=== PATIENT | female | born 1930 | race African-American/Black ===

== ENCOUNTER 2017-08-24 10:38 | Emergency (ER) | payer MEDICARE, OTHER ==
[~2017-08-24] VITALS: Ht 162.6 cm; Wt 78.0 kg
[~2017-08-24 10:38] MED LIST: ASPI-1159 PO; CHOL400T15 PO; CYAN10009 PO; LAMO25TA4 PO; LEVE500T19 PO; METO-385 PO; MULT-348 PO
[2017-08-24 12:11] LABS: BASOPHILS % 0.6 % (0.0-2.0); EOSINOPHILS % 2.6 % (0.0-5.0); HEMATOCRIT. 34.8 % (36.0-48.0); HEMOGLOBIN. 11.3 g/dL (12.0-16.0); LYMPHOCYTES % 27.2 % (20.0-50.0); MEAN CORPUSCULAR HEMOGLOBIN 29.5 pg (28.0-32.0); MEAN CORPUSCULAR VOLUME 90.8 fL (81.0-99.0); MEAN PLATELET VOLUME 6.1 fl (7.4-10.4); MONOCYTES % 9.2 % (2.0-8.0); NEUTROPHILS % 60.4 % (40.0-76.0); PLATELET 207 x1000/uL (130-400); RED BLOOD CELL COUNT 3.83 mill/uL (4.2-5.4); RED CELL DISTRIBUTION WIDTH 14.3 % (11.6-14.6)
[2017-08-24] MEDS ORDERED: NAPROXEN 500MG TABLET PO ONE (12:15)
[2017-08-24 12:17] LABS: CHLORIDE 106 mEq/L (98-107)
[2017-08-24 12:25] LABS: INR 1.1; PARTIAL THROMBOPLASTIN TIME 26.4 sec (23.4-31.0); PROTHROMBIN TIME 11.1 sec (9.4-11.6)
[2017-08-24 13:41] VITALS: BP 167/80
== END 2017-08-24 14:04 | disposition home or self-care (01) ==
LOC: ER 12:27
DX: R58 Hemorrhage, not elsewhere classified (principal); M79.622 Pain in left upper arm; Z79.82 Long term (current) use of aspirin; I10 Essential (primary) hypertension
CPT/HCPCS: 36415; 71045; 73060; 80048; 85025; 85610; 85730; 86850; 86900; 93005; 93971; 99285

== ENCOUNTER 2018-04-28 15:35 | Emergency (ER) | payer MEDICARE, OTHER ==
[~2018-04-28] VITALS: Ht 167.6 cm; Wt 78.0 kg
[2018-04-28 17:07] LABS: BASOPHILS % 0.1 % (0.0-2.0); HEMATOCRIT. 34.9 % (36.0-48.0); HEMOGLOBIN. 11.6 g/dL (12.0-16.0); LYMPHOCYTES % 7.2 % (20.0-50.0); MEAN CORPUSCULAR HEMOGLOBIN 30.3 pg (28.0-32.0); MEAN CORPUSCULAR VOLUME 91.3 fL (81.0-99.0); MEAN PLATELET VOLUME 7.2 fl (7.4-10.4); MONOCYTES % 6.5 % (2.0-8.0); NEUTROPHILS % 86.2 % (40.0-76.0); PLATELET 208 x1000/uL (130-400); RED BLOOD CELL COUNT 3.82 mill/uL (4.2-5.4); RED CELL DISTRIBUTION WIDTH 14.6 % (11.6-14.6)
[2018-04-28 17:14] LABS: CHLORIDE 106 mEq/L (98-107)
[2018-04-28 17:23] LABS: ETHANOL BLOOD < 10 mg/dL
[2018-04-28] MEDS ORDERED: LEVETIRACETAM 1000MG/100ML 100 ML IV ONE (17:45)
[2018-04-28 18:42] LABS: CLARITY URINE CLEAR (CLEAR); COLOR URINE YELLOW (YELLOW); KETONES URINE NEGATIVE (NEGATIVE); LEUKOCYTE ESTERASE URINE NEGATIVE (NEGATIVE); NITRITE URINE NEGATIVE (NEGATIVE); OCCULT BLOOD URINE 3+ (NEGATIVE); PROTEIN URINE 1+ (NEGATIVE); UROBILINOGEN URINE 0.2 E.U./dL (0.2-1.0)
[2018-04-28 18:55] LABS: *AMPHETAMINES SCREEN URINE NEGATIVE (NEGATIVE); *BARBITURATES SCREEN URINE NEGATIVE (NEGATIVE); *BENZODIAZEPINES SCREEN URINE NEGATIVE (NEGATIVE); *COCAINE SCREEN URINE NEGATIVE (NEGATIVE); CANNABINOID URINE SCREEN NEGATIVE (NEGATIVE)
[2018-04-28 18:56] LABS: METHADONE URINE SCREEN NEGATIVE (NEGATIVE); OPIATES URINE SCREEN NEGATIVE (NEGATIVE); PHENCYCLIDINE URINE SCREEN NEGATIVE (NEGATIVE)
[2018-04-28 20:45] VITALS: BP 146/56
== END 2018-04-28 20:49 | disposition home or self-care (01) ==
LOC: ER 15:35
DX: G40.909 Epilepsy, unspecified, not intractable, without status epilepticus (principal); E87.6 Hypokalemia; D72.829 Elevated white blood cell count, unspecified; I10 Essential (primary) hypertension; I69.398 Other sequelae of cerebral infarction; Z79.82 Long term (current) use of aspirin; Z79.899 Other long term (current) drug therapy
CPT/HCPCS: 36415; 70450; 80053; 80305; 81003; 85025; 96365; 96366; 99284; G0482; J1953

== ENCOUNTER 2018-07-20 15:02 | Inpatient (IN) | payer MEDICARE, OTHER, MEDICAID ==
[~2018-07-20] VITALS: Ht 152.4 cm; Wt 76.2 kg
[2018-07-20 15:51] LABS: CHLORIDE 102 mEq/L (98-107)
[2018-07-20 15:52] LABS: PROTHROMBIN TIME 10.3 sec (9.1-11.1)
[2018-07-20 15:57] LABS: ETHANOL BLOOD < 10 mg/dL
[2018-07-20 15:58] LABS: LDL CHOLESTEROL 125 mg/dL (5-100)
[2018-07-20 16:26] LABS: BASOPHILS % 0.5 % (0.0-2.0); EOSINOPHILS % 3.3 % (0.0-5.0); HEMATOCRIT. 32.9 % (36.0-48.0); HEMOGLOBIN. 11.1 g/dL (12.0-16.0); MEAN CORPUSCULAR HEMOGLOBIN 30.9 pg (28.0-32.0); MEAN CORPUSCULAR VOLUME 91.4 fL (81.0-99.0); MEAN PLATELET VOLUME 6.5 fl (7.4-10.4); MONOCYTES % 10.7 % (2.0-8.0); NEUTROPHILS % 57.5 % (40.0-76.0); PLATELET 200 x1000/uL (130-400); RED CELL DISTRIBUTION WIDTH 14.1 % (11.6-14.6)
[2018-07-20] MEDS ORDERED: LEVETIRACETAM 1000MG/100ML 100 ML IV NR (16:30)
[2018-07-20 17:02] LABS: CLARITY URINE CLEAR (CLEAR); COLOR URINE YELLOW (YELLOW); KETONES URINE NEGATIVE (NEGATIVE); LEUKOCYTE ESTERASE URINE NEGATIVE (NEGATIVE); NITRITE URINE NEGATIVE (NEGATIVE); OCCULT BLOOD URINE NEGATIVE (NEGATIVE); PROTEIN URINE NEGATIVE (NEGATIVE); SPECIFIC GRAVITY URINE 1.025 (1.005-1.030); UROBILINOGEN URINE 0.2 E.U./dL (0.2-1.0)
[2018-07-20 17:15] LABS: *AMPHETAMINES SCREEN URINE NEGATIVE (NEGATIVE); *BARBITURATES SCREEN URINE NEGATIVE (NEGATIVE); *BENZODIAZEPINES SCREEN URINE NEGATIVE (NEGATIVE); *COCAINE SCREEN URINE NEGATIVE (NEGATIVE); METHADONE URINE SCREEN NEGATIVE (NEGATIVE); OPIATES URINE SCREEN NEGATIVE (NEGATIVE)
[2018-07-20 17:16] LABS: CANNABINOID URINE SCREEN NEGATIVE (NEGATIVE); PHENCYCLIDINE URINE SCREEN NEGATIVE (NEGATIVE)
[2018-07-20] MEDS ORDERED: IOHEXOL-350 100 ML BOTTLE ONE (17:21)
[2018-07-20] MEDS ORDERED: MAGNESIUM/ALUMINUM HYDROXIDE/SIMETHICONE 30ML UDC PO PRN (17:30)
[2018-07-20] MEDS ORDERED: DIPHENHYDRAMINE 50MG/ML VIAL IV PRN (17:30)
[2018-07-20] MEDS ORDERED: ACETAMINOPHEN 325MG TABLET PO PRN (17:30)
[2018-07-20] MEDS ORDERED: ENOXAPARIN 40MG/0.4ML SYR SUBCUT SCH (17:30)
[2018-07-20 20:00] VITALS: BP 137/65
[2018-07-20 22:55] VITALS: BP 109/55
[2018-07-21] VITALS (7 sets, daily range): BP systolic 109–162; BP diastolic 57–69
[2018-07-21] MEDS ORDERED: DEXTROSE 50% WATER 50ML SYRINGE IV PRN (00:30)
[2018-07-21] MEDS: ENOXAPARIN 40MG/0.4ML SYR SUBCUT SCH ×2 (00:51→21:09)
[2018-07-21] MEDS: BLOOD SUGAR DIAGNOSTIC STRIP TEST SCH ×4 (05:55→21:09)
[2018-07-21] MEDS: INSULIN LISPRO 100 UNITS/ML SUBCUT SCH ×5 (05:57→21:00)
[2018-07-21 07:02] LABS: BASOPHILS % 0.7 % (0.0-2.0); EOSINOPHILS % 3.1 % (0.0-5.0); HEMATOCRIT. 31.7 % (36.0-48.0); HEMOGLOBIN. 10.5 g/dL (12.0-16.0); LYMPHOCYTES % 35.4 % (20.0-50.0); MEAN CORPUSCULAR HEMOGLOBIN 30.6 pg (28.0-32.0); MEAN CORPUSCULAR VOLUME 92.2 fL (81.0-99.0); MONOCYTES % 11.3 % (2.0-8.0); NEUTROPHILS % 49.5 % (40.0-76.0); PLATELET 193 x1000/uL (130-400); RED BLOOD CELL COUNT 3.44 mill/uL (4.2-5.4); RED CELL DISTRIBUTION WIDTH 14.1 % (11.6-14.6)
[2018-07-21 08:00] LABS: CHLORIDE 104 mEq/L (98-107)
[2018-07-21 08:07] LABS: LDL CHOLESTEROL 112 mg/dL (5-100)
[2018-07-21 08:10] LABS: HDL CHOLESTEROL 71 mg/dL (40-59)
[2018-07-21] MEDS: LEVETIRACETAM 250MG TABLET PO SCH ×2 (09:01→21:00)
[2018-07-21] MEDS: LAMOTRIGINE 25MG TABLET PO SCH ×2 (09:02→17:07)
[2018-07-21] MEDS: METOPROLOL TARTRATE 50MG TABLET PO SCH (09:03)
[2018-07-21] MEDS ORDERED: CARV3.1242 MT (10:20)
[2018-07-21] MEDS ORDERED: AMLO10TA80 MT (10:21)
[2018-07-21] MEDS ORDERED: GABA-529 MT (10:22)
[2018-07-21] MEDS: AMLODIPINE 5MG TABLET PO SCH (13:00)
[2018-07-21] MEDS: ATORVASTATIN CALCIUM 20MG TABLET PO SCH (21:00)
[2018-07-22] VITALS (11 sets, daily range): BP systolic 93–156; BP diastolic 42–100
[2018-07-22] MEDS: BLOOD SUGAR DIAGNOSTIC STRIP TEST SCH ×4 (05:54→20:36)
[2018-07-22] MEDS: INSULIN LISPRO 100 UNITS/ML SUBCUT SCH ×4 (05:54→20:36)
[2018-07-22] MEDS: AMLODIPINE 5MG TABLET PO SCH (08:55)
[2018-07-22] MEDS: LAMOTRIGINE 25MG TABLET PO SCH ×2 (08:55→16:24)
[2018-07-22] MEDS: LEVETIRACETAM 250MG TABLET PO SCH ×2 (08:55→20:35)
[2018-07-22] MEDS: METOPROLOL TARTRATE 50MG TABLET PO SCH (11:23)
[2018-07-22] MEDS: CLOPIDOGREL 75MG TABLET PO SCH (12:07)
[2018-07-22 12:53] LABS: T4 FREE 0.96 ng/dL (0.76-1.46)
[2018-07-22 13:12] LABS: VITAMIN B12 SERUM 769 pg/mL (211-911)
[2018-07-22 13:15] LABS: FOLIC ACID (FOLATE) SERUM > 20.00 ng/mL (>5.38)
[2018-07-22] MEDS: ATORVASTATIN CALCIUM 20MG TABLET PO SCH (20:35)
[2018-07-22] MEDS: ENOXAPARIN 40MG/0.4ML SYR SUBCUT SCH (20:35)
[2018-07-23] VITALS (7 sets, daily range): BP systolic 106–150; BP diastolic 47–84
[2018-07-23] MEDS: INSULIN LISPRO 100 UNITS/ML SUBCUT SCH ×2 (06:11→12:20)
[2018-07-23] MEDS: BLOOD SUGAR DIAGNOSTIC STRIP TEST SCH ×2 (06:11→11:27)
[2018-07-23] MEDS: LAMOTRIGINE 25MG TABLET PO SCH (08:25)
[2018-07-23] MEDS: CLOPIDOGREL 75MG TABLET PO SCH (08:25)
[2018-07-23] MEDS: LEVETIRACETAM 250MG TABLET PO SCH (08:25)
[2018-07-23] MEDS: METOPROLOL TARTRATE 50MG TABLET PO SCH (08:26)
[2018-07-23] MEDS: AMLODIPINE 5MG TABLET PO SCH (08:27)
== END 2018-07-23 16:42 | DRG 65 ==
LOC: ER 15:02 → 8WST 16:31 → EDBEDREQ 16:40 → EDBEDREQSVC 16:40 → SUPCPDRO 17:18 → ENRESERV 21:06 → 8WST 23:38 → 3WST 07-21 18:25
PROVIDERS: ADMIT Internal Medicine Nephrology; ATTEND Internal Medicine Nephrology
DX: I63.9 Cerebral infarction, unspecified (principal); G81.91 Hemiplegia, unspecified affecting right dominant side; J98.11 Atelectasis; R47.01 Aphasia; I10 Essential (primary) hypertension; R47.1 Dysarthria and anarthria; D64.9 Anemia, unspecified; G40.909 Epilepsy, unspecified, not intractable, without status epilepticus; J44.9 Chronic obstructive pulmonary disease, unspecified; E78.5 Hyperlipidemia, unspecified; R74.8 Abnormal levels of other serum enzymes; E78.00 Pure hypercholesterolemia, unspecified; I25.10 Atherosclerotic heart disease of native coronary artery without angina pectoris; Z79.02 Long term (current) use of antithrombotics/antiplatelets; Z79.82 Long term (current) use of aspirin; Z79.899 Other long term (current) drug therapy
CPT/HCPCS: 36415; 70496; 70498; 70544; 70553; 71045; 80048; 80061; 80305; 80320; 82607; 82746; 82962; 83036; 83721; 83735; 84439; 84443; 84481; 84484; 92523; 92610; 93005; 93306; 93970; 96365; 97162; 97166; 99291; J1650; J1953; Q9967; G0480

== ENCOUNTER 2018-07-23 16:45 | Inpatient (IN) | payer MEDICARE, OTHER, MEDICAID ==
[~2018-07-23] VITALS: Ht 152.4 cm; Wt 76.2 kg
[~2018-07-23 16:45] MED LIST changes: +AMLO10TA80 MT; -ASPI-1159 PO; +CARV3.1242 MT; -CHOL400T15 PO; -CYAN10009 PO; +GABA-529 MT; -LAMO25TA4 PO; -LEVE500T19 PO; -METO-385 PO; -MULT-348 PO
[2018-07-23 16:50] VITALS: BP 172/59
[2018-07-23 17:40] VITALS: BP 173/59
[2018-07-23] MEDS ORDERED: DEXTROSE 50% WATER 50ML SYRINGE IV PRN (17:45)
[2018-07-23] MEDS ORDERED: MAGNESIUM/ALUMINUM HYDROXIDE/SIMETHICONE 30ML UDC PO PRN (17:45)
[2018-07-23] MEDS ORDERED: ACETAMINOPHEN 325MG TABLET PO PRN (17:45)
[2018-07-23] MEDS ORDERED: DIPHENHYDRAMINE 50MG/ML VIAL IV PRN (17:45)
[2018-07-23 20:00] VITALS: BP 127/53
[2018-07-23] MEDS: INSULIN LISPRO 100 UNITS/ML SUBCUT SCH (21:00)
[2018-07-23] MEDS: BLOOD SUGAR DIAGNOSTIC STRIP TEST SCH (21:02)
[2018-07-23] MEDS: ENOXAPARIN 40MG/0.4ML SYR SUBCUT SCH (21:03)
[2018-07-23] MEDS: ATORVASTATIN CALCIUM 20MG TABLET PO SCH (21:03)
[2018-07-23] MEDS: LEVETIRACETAM 250MG TABLET PO SCH (21:04)
[2018-07-24] MEDS: BLOOD SUGAR DIAGNOSTIC STRIP TEST SCH ×4 (06:01→20:51)
[2018-07-24 06:57] LABS: CHLORIDE 105 mEq/L (98-107)
[2018-07-24 07:17] LABS: BASOPHILS % 0.5 % (0.0-2.0); EOSINOPHILS % 3.2 % (0.0-5.0); HEMATOCRIT. 31.3 % (36.0-48.0); HEMOGLOBIN. 10.5 g/dL (12.0-16.0); LYMPHOCYTES % 34.9 % (20.0-50.0); MEAN CORPUSCULAR HEMOGLOBIN 30.6 pg (28.0-32.0); MEAN CORPUSCULAR VOLUME 91.4 fL (81.0-99.0); MONOCYTES % 12.1 % (2.0-8.0); NEUTROPHILS % 49.3 % (40.0-76.0); PLATELET 190 x1000/uL (130-400); RED BLOOD CELL COUNT 3.43 mill/uL (4.2-5.4)
[2018-07-24 08:00] VITALS: BP 160/58
[2018-07-24] MEDS: INSULIN LISPRO 100 UNITS/ML SUBCUT SCH ×4 (08:42→20:51)
[2018-07-24] MEDS: LAMOTRIGINE 25MG TABLET PO SCH ×2 (08:43→17:20)
[2018-07-24] MEDS: CLOPIDOGREL 75MG TABLET PO SCH (08:43)
[2018-07-24] MEDS: LEVETIRACETAM 250MG TABLET PO SCH ×2 (08:44→20:33)
[2018-07-24] MEDS: METOPROLOL TARTRATE 50MG TABLET PO SCH (08:44)
[2018-07-24] MEDS: AMLODIPINE 5MG TABLET PO SCH (08:44)
[2018-07-24 20:00] VITALS: BP 121/49
[2018-07-24] MEDS: ENOXAPARIN 40MG/0.4ML SYR SUBCUT SCH (20:33)
[2018-07-24] MEDS: ATORVASTATIN CALCIUM 20MG TABLET PO SCH (20:33)
[2018-07-25] MEDS: BLOOD SUGAR DIAGNOSTIC STRIP TEST SCH ×4 (06:04→20:21)
[2018-07-25] MEDS: INSULIN LISPRO 100 UNITS/ML SUBCUT SCH ×4 (06:04→20:21)
[2018-07-25 08:14] VITALS: BP 113/78
[2018-07-25] MEDS: CLOPIDOGREL 75MG TABLET PO SCH (09:42)
[2018-07-25] MEDS: LEVETIRACETAM 250MG TABLET PO SCH ×2 (09:42→20:16)
[2018-07-25] MEDS: METOPROLOL TARTRATE 50MG TABLET PO SCH (09:42)
[2018-07-25] MEDS: AMLODIPINE 5MG TABLET PO SCH (09:42)
[2018-07-25] MEDS: LAMOTRIGINE 25MG TABLET PO SCH ×2 (09:42→18:07)
[2018-07-25] MEDS: BISACODYL 5MG TABLET PO PRN (12:06)
[2018-07-25] MEDS ORDERED: LORAZEPAM 2MG/ML CPJ IV PRN (16:00)
[2018-07-25] MEDS: LORAZEPAM 2MG/ML CPJ IV PRN (18:00)
[2018-07-25 20:00] VITALS: BP 98/41
[2018-07-25] MEDS: ATORVASTATIN CALCIUM 20MG TABLET PO SCH (20:16)
[2018-07-25] MEDS: ENOXAPARIN 40MG/0.4ML SYR SUBCUT SCH (20:16)
[2018-07-26 04:50] LABS: CLARITY URINE CLEAR (CLEAR); COLOR URINE YELLOW (YELLOW); KETONES URINE NEGATIVE (NEGATIVE); LEUKOCYTE ESTERASE URINE NEGATIVE (NEGATIVE); NITRITE URINE NEGATIVE (NEGATIVE); OCCULT BLOOD URINE NEGATIVE (NEGATIVE); PH URINE 5.5 (4.5-8.0); PROTEIN URINE NEGATIVE (NEGATIVE); SPECIFIC GRAVITY URINE 1.016 (1.005-1.030)
[2018-07-26] MEDS: BLOOD SUGAR DIAGNOSTIC STRIP TEST SCH ×4 (06:30→20:53)
[2018-07-26 07:39] LABS: BASOPHILS % 0.6 % (0.0-2.0); EOSINOPHILS % 4.5 % (0.0-5.0); HEMATOCRIT. 31.8 % (36.0-48.0); HEMOGLOBIN. 10.5 g/dL (12.0-16.0); LYMPHOCYTES % 33.5 % (20.0-50.0); MEAN CORPUSCULAR HEMOGLOBIN 30.2 pg (28.0-32.0); MEAN CORPUSCULAR VOLUME 91.8 fL (81.0-99.0); MEAN PLATELET VOLUME 7.1 fl (7.4-10.4); MONOCYTES % 11.9 % (2.0-8.0); NEUTROPHILS % 49.5 % (40.0-76.0); PLATELET 186 x1000/uL (130-400); RED BLOOD CELL COUNT 3.46 mill/uL (4.2-5.4); RED CELL DISTRIBUTION WIDTH 13.9 % (11.6-14.6)
[2018-07-26 07:50] LABS: CHLORIDE 107 mEq/L (98-107)
[2018-07-26 08:00] VITALS: BP 113/41
[2018-07-26 08:01] LABS: PHOSPHORUS 3.4 mg/dL (2.5-4.9)
[2018-07-26 08:02] LABS: TOTAL IRON BINDING CAPACITY 286 ug/dL (250-450)
[2018-07-26] MEDS: INSULIN LISPRO 100 UNITS/ML SUBCUT SCH ×4 (09:00→21:00)
[2018-07-26] MEDS: LAMOTRIGINE 25MG TABLET PO SCH ×2 (09:32→17:00)
[2018-07-26] MEDS: AMLODIPINE 5MG TABLET PO SCH (09:33)
[2018-07-26] MEDS: CLOPIDOGREL 75MG TABLET PO SCH (09:33)
[2018-07-26] MEDS: LEVETIRACETAM 250MG TABLET PO SCH ×2 (09:33→20:53)
[2018-07-26] MEDS: METOPROLOL TARTRATE 50MG TABLET PO SCH (10:51)
[2018-07-26] MEDS: LORAZEPAM 2MG/ML CPJ IV PRN (11:32)
[2018-07-26 20:00] VITALS: BP 139/52
[2018-07-26] MEDS: ATORVASTATIN CALCIUM 20MG TABLET PO SCH (20:53)
[2018-07-26] MEDS: ENOXAPARIN 40MG/0.4ML SYR SUBCUT SCH (20:53)
[2018-07-27] MEDS: BLOOD SUGAR DIAGNOSTIC STRIP TEST SCH ×2 (06:30→21:00)
[2018-07-27 07:30] LABS: BASOPHILS % 0.7 % (0.0-2.0); EOSINOPHILS % 4.7 % (0.0-5.0); HEMATOCRIT. 30.8 % (36.0-48.0); HEMOGLOBIN. 10.3 g/dL (12.0-16.0); LYMPHOCYTES % 40.4 % (20.0-50.0); MEAN CORPUSCULAR HEMOGLOBIN 31.1 pg (28.0-32.0); MEAN CORPUSCULAR VOLUME 92.5 fL (81.0-99.0); MEAN PLATELET VOLUME 6.9 fl (7.4-10.4); MONOCYTES % 10.5 % (2.0-8.0); NEUTROPHILS % 43.7 % (40.0-76.0); PLATELET 180 x1000/uL (130-400); RED BLOOD CELL COUNT 3.33 mill/uL (4.2-5.4); RED CELL DISTRIBUTION WIDTH 13.7 % (11.6-14.6)
[2018-07-27] MEDS: METOPROLOL TARTRATE 50MG TABLET PO SCH (08:18)
[2018-07-27 08:22] VITALS: BP 143/53
[2018-07-27] MEDS: CLOPIDOGREL 75MG TABLET PO SCH (08:23)
[2018-07-27] MEDS: LAMOTRIGINE 25MG TABLET PO SCH ×2 (08:23→17:12)
[2018-07-27] MEDS: AMLODIPINE 5MG TABLET PO SCH (08:23)
[2018-07-27] MEDS: LEVETIRACETAM 250MG TABLET PO SCH ×2 (08:23→22:14)
[2018-07-27] MEDS: BISACODYL 5MG TABLET PO PRN (19:21)
[2018-07-27 20:00] VITALS: BP 133/57
[2018-07-27] MEDS: INSULIN LISPRO 100 UNITS/ML SUBCUT SCH (21:00)
[2018-07-27] MEDS: ATORVASTATIN CALCIUM 20MG TABLET PO SCH (22:13)
[2018-07-27] MEDS: ENOXAPARIN 40MG/0.4ML SYR SUBCUT SCH (22:14)
[2018-07-28] MEDS: BLOOD SUGAR DIAGNOSTIC STRIP TEST SCH ×4 (06:15→20:54)
[2018-07-28 08:00] VITALS: BP 119/59
[2018-07-28] MEDS: INSULIN LISPRO 100 UNITS/ML SUBCUT SCH ×4 (08:59→20:54)
[2018-07-28] MEDS: CLOPIDOGREL 75MG TABLET PO SCH (09:38)
[2018-07-28] MEDS: METOPROLOL TARTRATE 50MG TABLET PO SCH (09:39)
[2018-07-28] MEDS: AMLODIPINE 5MG TABLET PO SCH (09:39)
[2018-07-28] MEDS: LEVETIRACETAM 250MG TABLET PO SCH ×2 (09:39→20:46)
[2018-07-28] MEDS: LAMOTRIGINE 25MG TABLET PO SCH ×2 (09:39→16:56)
[2018-07-28 20:00] VITALS: BP 142/64
[2018-07-28] MEDS: ENOXAPARIN 40MG/0.4ML SYR SUBCUT SCH (20:46)
[2018-07-28] MEDS: ATORVASTATIN CALCIUM 20MG TABLET PO SCH (20:46)
[2018-07-29] MEDS: BLOOD SUGAR DIAGNOSTIC STRIP TEST SCH ×4 (06:17→21:15)
[2018-07-29] MEDS: INSULIN LISPRO 100 UNITS/ML SUBCUT SCH ×4 (06:17→21:00)
[2018-07-29 06:36] LABS: BASOPHILS % 0.3 % (0.0-2.0); EOSINOPHILS % 4.1 % (0.0-5.0); MEAN CORPUSCULAR HEMOGLOBIN 30.5 pg (28.0-32.0); MEAN CORPUSCULAR VOLUME 91.7 fL (81.0-99.0); MONOCYTES % 9.9 % (2.0-8.0); NEUTROPHILS % 44.7 % (40.0-76.0); PLATELET 168 x1000/uL (130-400); RED BLOOD CELL COUNT 3.27 mill/uL (4.2-5.4); RED CELL DISTRIBUTION WIDTH 13.9 % (11.6-14.6)
[2018-07-29 08:00] VITALS: BP 109/52
[2018-07-29] MEDS: AMLODIPINE 5MG TABLET PO SCH (09:00)
[2018-07-29] MEDS: METOPROLOL TARTRATE 50MG TABLET PO SCH (09:00)
[2018-07-29] MEDS: LEVETIRACETAM 250MG TABLET PO SCH ×2 (09:30→20:11)
[2018-07-29] MEDS: CLOPIDOGREL 75MG TABLET PO SCH (09:30)
[2018-07-29] MEDS: LAMOTRIGINE 25MG TABLET PO SCH ×2 (09:30→17:24)
[2018-07-29 20:00] VITALS: BP 123/51
[2018-07-29] MEDS: ENOXAPARIN 40MG/0.4ML SYR SUBCUT SCH (20:11)
[2018-07-29] MEDS: ATORVASTATIN CALCIUM 20MG TABLET PO SCH (20:11)
[2018-07-30] MEDS: INSULIN LISPRO 100 UNITS/ML SUBCUT SCH ×4 (06:15→20:41)
[2018-07-30] MEDS: BLOOD SUGAR DIAGNOSTIC STRIP TEST SCH ×4 (06:15→20:41)
[2018-07-30 08:37] VITALS: BP 154/61
[2018-07-30] MEDS: CLOPIDOGREL 75MG TABLET PO SCH (08:58)
[2018-07-30] MEDS: LAMOTRIGINE 25MG TABLET PO SCH ×2 (08:59→17:28)
[2018-07-30] MEDS: AMLODIPINE 5MG TABLET PO SCH (08:59)
[2018-07-30] MEDS: METOPROLOL TARTRATE 50MG TABLET PO SCH (08:59)
[2018-07-30] MEDS: LEVETIRACETAM 250MG TABLET PO SCH ×2 (08:59→20:40)
[2018-07-30] MEDS: BISACODYL 5MG TABLET PO PRN (10:43)
[2018-07-30] MEDS ORDERED: LORAZEPAM 1MG TABLET PO PRN (18:30)
[2018-07-30 20:00] VITALS: BP 126/51
[2018-07-30] MEDS: ATORVASTATIN CALCIUM 20MG TABLET PO SCH (20:40)
[2018-07-30] MEDS: ENOXAPARIN 40MG/0.4ML SYR SUBCUT SCH (20:40)
[2018-07-31 04:19] LABS: 25-HYDROXY VITAMIN D3 32 ng/mL (.)
[2018-07-31] MEDS: BLOOD SUGAR DIAGNOSTIC STRIP TEST SCH ×4 (06:17→21:32)
[2018-07-31 08:09] VITALS: BP 136/55
[2018-07-31] MEDS: CLOPIDOGREL 75MG TABLET PO SCH (08:41)
[2018-07-31] MEDS: INSULIN LISPRO 100 UNITS/ML SUBCUT SCH ×4 (08:41→21:00)
[2018-07-31] MEDS: LEVETIRACETAM 250MG TABLET PO SCH ×2 (08:42→21:32)
[2018-07-31] MEDS: AMLODIPINE 5MG TABLET PO SCH (08:42)
[2018-07-31] MEDS: LAMOTRIGINE 25MG TABLET PO SCH ×2 (08:42→17:29)
[2018-07-31] MEDS: METOPROLOL TARTRATE 50MG TABLET PO SCH (08:43)
[2018-07-31] MEDS ORDERED: ERGOCALCIFEROL 50000UNITS CAPSULE PO SCH (17:00)
[2018-07-31 20:00] VITALS: BP 127/55
[2018-07-31] MEDS: ATORVASTATIN CALCIUM 20MG TABLET PO SCH (21:32)
[2018-07-31] MEDS: ENOXAPARIN 40MG/0.4ML SYR SUBCUT SCH (21:33)
[2018-08-01] MEDS: INSULIN LISPRO 100 UNITS/ML SUBCUT SCH ×2 (06:18→12:38)
[2018-08-01] MEDS: BLOOD SUGAR DIAGNOSTIC STRIP TEST SCH ×2 (06:18→11:20)
[2018-08-01 08:46] VITALS: BP 134/68
[2018-08-01] MEDS: CLOPIDOGREL 75MG TABLET PO SCH (08:59)
[2018-08-01] MEDS: METOPROLOL TARTRATE 50MG TABLET PO SCH (09:00)
[2018-08-01] MEDS: AMLODIPINE 5MG TABLET PO SCH (09:00)
[2018-08-01] MEDS: LEVETIRACETAM 250MG TABLET PO SCH (09:00)
[2018-08-01] MEDS: LAMOTRIGINE 25MG TABLET PO SCH (09:00)
[2018-08-01 12:15] VITALS: BP 118/59
== END 2018-08-01 14:30 | disposition home health service (06) | DRG 56 ==
LOC: UNDOADMIN 16:45 → 3WST 16:45
PROVIDERS: ADMIT Physical Medicine & Rehabilitation Spinal Cord Injury Medicine; ATTEND Internal Medicine Nephrology
DX: I69.351 Hemiplegia and hemiparesis following cerebral infarction affecting right dominant side (principal); I63.9 Cerebral infarction, unspecified; J98.11 Atelectasis; E46 Unspecified protein-calorie malnutrition; R47.01 Aphasia; R47.1 Dysarthria and anarthria; G40.909 Epilepsy, unspecified, not intractable, without status epilepticus; R53.81 Other malaise; I10 Essential (primary) hypertension; E78.00 Pure hypercholesterolemia, unspecified; E78.5 Hyperlipidemia, unspecified; J44.9 Chronic obstructive pulmonary disease, unspecified; R74.8 Abnormal levels of other serum enzymes; F01.50 Vascular dementia, unspecified severity, without behavioral disturbance, psychotic disturbance, mood disturbance, and anxiety; F32.9 Major depressive disorder, single episode, unspecified; I25.10 Atherosclerotic heart disease of native coronary artery without angina pectoris; D51.9 Vitamin B12 deficiency anemia, unspecified; Z68.32 Body mass index [BMI] 32.0-32.9, adult
CPT/HCPCS: 36415; 80048; 82140; 82306; 82607; 82728; 82746; 82962; 83036; 83540; 83550; 83735; 84100; 84134; 84443; 92523; 92610; 93970; 93971; 97110; 97112; 97116; 97150; 97162; 97166; 97530; 97535; J1650; J2060

== ENCOUNTER 2018-08-20 09:27 | Emergency (ER) | payer MEDICARE, OTHER, MEDICAID ==
[~2018-08-20] VITALS: Ht 167.6 cm; Wt 80.0 kg
[~2018-08-20 09:27] MED LIST changes: -AMLO10TA80 MT; -CARV3.1242 MT
[2018-08-20] MEDS ORDERED: LIDOCAINE HCL/PF 1% 10 MG/ML 5ML VIAL IJ ONE (10:00)
[2018-08-20] MEDS ORDERED: TETANUS, DIPHTHERIA, PERTUSSIS VAC/PF 0.5ML (>7YR OLD) IM ONE (11:45)
[2018-08-20 15:55] VITALS: BP 158/65
== END 2018-08-20 17:02 | disposition home or self-care (01) ==
LOC: ER 09:27
DX: S61.255A Open bite of left ring finger without damage to nail, initial encounter (principal); Y07.499 Other family member, perpetrator of maltreatment and neglect; Y04.1XXA Assault by human bite, initial encounter; Y93.89 Activity, other specified; Y92.098 Other place in other non-institutional residence as the place of occurrence of the external cause; Z23 Encounter for immunization; I11.9 Hypertensive heart disease without heart failure; G40.909 Epilepsy, unspecified, not intractable, without status epilepticus; Z79.01 Long term (current) use of anticoagulants
CPT/HCPCS: 12001; 70450; 73130; 90471; 90715; 99284; J3490

== ENCOUNTER 2018-09-05 15:05 | Emergency (ER) | payer MEDICARE, OTHER, MEDICAID ==
[~2018-09-05] VITALS: Ht 162.6 cm; Wt 73.0 kg
[2018-09-05 15:22] VITALS: BP 170/65
== END 2018-09-05 16:11 | disposition home or self-care (01) ==
LOC: ER 15:05
DX: S61.215D Laceration without foreign body of left ring finger without damage to nail, subsequent encounter (principal); I10 Essential (primary) hypertension; Z79.899 Other long term (current) drug therapy; W18.39XD Other fall on same level, subsequent encounter
CPT/HCPCS: 99281